=== PATIENT | female | born 1960 | race Caucasian/White ===

== ENCOUNTER → 2016-08-23 14:35 | Outpatient (CLI) | payer OTHER ==
[2015-07-28 23:38] VITALS: BMI 33.7
[~2016-08-23 14:35] MED LIST: JANUMET 50-5001 TAB PO; LEVOXYL100 MCG PO; LOPRESSOR25 MG PO
== END | disposition home or self-care (01) ==
LOC: D.RAD 14:30
DX: M54.5 Low back pain (principal); M25.561 Pain in right knee

== ENCOUNTER → 2017-04-05 18:12 | Emergency (ER) | payer BC ==
[2015-07-28 23:38] VITALS: BMI 33.7
== END | disposition left against medical advice (07) ==
LOC: D.ER 18:12
DX: Z20.9 Contact with and (suspected) exposure to unspecified communicable disease (principal)

== ENCOUNTER 2017-04-09 18:12 | Emergency (ER) | payer BC ==
[2015-07-28 23:38] VITALS: BMI 33.7
== END 2017-04-09 20:10 | disposition home or self-care (01) ==
LOC: D.ER 18:12
DX: J20.9 Acute bronchitis, unspecified (principal); J06.9 Acute upper respiratory infection, unspecified; E11.9 Type 2 diabetes mellitus without complications; I10 Essential (primary) hypertension; E03.9 Hypothyroidism, unspecified